=== PATIENT | male | born 1980 | race Caucasian/White ===

== ENCOUNTER 2022-02-21 04:10 | Outpatient (CLI) | payer MEDICARE, MEDICAID, SELFPAY ==
[2022-02-21] MEDS: Albuterol HFA 18 GM 200 PUFF INH IH (11:19)
[2022-02-21] MEDS: Inhaler, Assist Device 1 EACH MC (11:19)
--- NOTE | 2022-02-21 11:58 | W.PFT ---
Date of service: 02/21/22 Time of Service: 10:11 Pulmonary Function Test Result Requesting Provider Grupo Indications: ACOS Note: 6 Minute Walk Test Distance walked:1600 feet Desaturations: 4 LPM needed after 30 seconds, 8LPM needed at 3 minutes to maintain saturations in the high 80's. Heart rate changes:82bpm that increased to 114bpm at 5 minutes Recommendation: Flakita Lombardo MD Pulmonary & Critical Care Medicine Clinical Correlation therefore is recommended.
--- NOTE | 2022-02-21 15:23 | W.PFT ---
Date of service: 02/21/22 Time of Service: 10:25 Pulmonary Function Test Result Requesting Provider Duchene Indications: ACOS Interpretation Spirometry: There is no airflow limitation. There is no significant bronchodilator response. Lung Volumes: Normal lung volumes. Diffusion Capacity: Reduced diffusion. Airway Pressure: Normal airways resistance. Impression Reduced diffusion. This could represent early ILD or pulmonary vascular disease. Clinical Correlation therefore is recommended.
== END 2022-02-21 04:11 | disposition home or self-care (01) ==
LOC: RT 04:10
PROVIDERS: PCP Family Medicine; Visit Provider Student in an Organized Health Care Education/Training Program
DX: J44.9 Chronic obstructive pulmonary disease, unspecified (principal); J98.4 Other disorders of lung; Z87.891 Personal history of nicotine dependence
CPT/HCPCS: 94060; 94618; 94726; 94729

== ENCOUNTER 2022-08-28 15:53 | Outpatient (REF) | payer MEDICARE, MEDICAID, SELFPAY ==
[2022-08-28 11:39] LABS: Abs Immature Grans 0.03 10^3/uL (0.0-0.06); Absolute Basophil Count 0.08 10^3/uL (0.0-0.2); Absolute Eosinophil Count 0.18 10^3/uL (0.0-0.7); Absolute Lymphocyte Count 2.89 10^3/uL (1.2-3.4); Absolute Monocyte Count 0.92 10^3/uL (0.1-0.8); Absolute Neutrophil Count 5.35 10^3/uL (1.2-6.7); Basophils % 0.8; Eosinophils % 1.9; HCT 38.9 % (40.0-50.0); HGB 12.8 g/dL (13.5-17.5); Immature Grans % 0.3; Lymphocytes % 30.6; MCH 29.9 pg (27.0-33.0); MCHC 32.9 % (32.0-36.0); MCV 91 fL (80-95); MPV 9.2 fL (8.0-11.0); Monocytes % 9.7; Neutrophils % 56.7; Platelet Count 409 10^3/uL (130-400); RBC 4.28 10^6/uL (4.36-5.78); RDW 12.2 % (11.8-14.1); RDW-SD 40.3 fL; WBC 9.45 10^3/uL (4.4-10.8)
[2022-08-28 12:39] LABS: TSH (W/Ref FT4) 6.22 uIU/mL (0.36-3.74)
[2022-08-28 12:54] LABS: FREE T4 0.65 ng/dL (0.76-1.46)
== END 2022-08-28 15:54 | disposition home or self-care (01) ==
LOC: LBN 15:53
PROVIDERS: PCP Family Medicine; Visit Provider Student in an Organized Health Care Education/Training Program
DX: J96.91 Respiratory failure, unspecified with hypoxia (principal); F17.210 Nicotine dependence, cigarettes, uncomplicated; J44.9 Chronic obstructive pulmonary disease, unspecified
CPT/HCPCS: 84439; 84443; 85025

== ENCOUNTER 2022-09-28 03:26 | Outpatient (CLI) | payer MEDICARE, MEDICAID, SELFPAY ==
[2022-09-28 12:03] LABS: BE -1 mmol/L (-2-3); HCO3 24 mmol/L (22-26); pCO2 38 mmHg (35-45); pO2 191 mmHg (80-105)
[2022-09-28 12:04] LABS: FIO2L 8 L; Site Right Radial; sO2 > 99 % (95-98)
== END 2022-09-28 03:27 | disposition home or self-care (01) ==
LOC: RT 03:26
PROVIDERS: PCP Family Medicine; Visit Provider Student in an Organized Health Care Education/Training Program
DX: J96.91 Respiratory failure, unspecified with hypoxia (principal)
CPT/HCPCS: 82805; 36600

== ENCOUNTER 2022-11-24 03:49 | Outpatient (CLI) | payer MEDICARE, MEDICAID, SELFPAY ==
--- NOTE | 2022-11-24 15:35 | W.6MWT ---
Date of service: 11/24/22 Time of Service: 12:51 6 Minute Walk Test Note: 6 Minute Walk Test Distance walked:1300 feet Desaturations: none - left on 8LPM throughout the walk despite SpO2 >97% throughout. Heart rate changes: No significant changes Recommendation: unable to make recommendation due to inappropriate test done. Recommend repeat with a proper titration performed. Flakita Lombardo MD Pulmonary & Critical Care Medicine
== END 2022-11-24 03:50 | disposition home or self-care (01) ==
LOC: RT 03:50
PROVIDERS: PCP Family Medicine; Visit Provider Student in an Organized Health Care Education/Training Program
DX: J96.01 Acute respiratory failure with hypoxia (principal)
CPT/HCPCS: 94618

== ENCOUNTER → 2023-02-08 12:30 | Outpatient (BNVA) | payer MEDICARE, MEDICAID, SELFPAY | PROVIDERS: PCP Family Medicine; Referring Provider Family Medicine; Visit Provider Physician Assistant Surgical | DX: Z79.899 Other long term (current) drug therapy (principal); J44.9 Chronic obstructive pulmonary disease, unspecified; J96.91 Respiratory failure, unspecified with hypoxia | CPT/HCPCS: 99443 ==

== ENCOUNTER 2023-03-05 05:32 | Outpatient (CLI) | payer MEDICARE, MEDICAID, SELFPAY ==
--- NOTE | 2023-03-05 12:28 | W.6MWT ---
Date of service: 03/05/23 Time of Service: 12:26 6 Minute Walk Test Note: 6 Minute Walk Test Distance walked:1600 feet Desaturations: No significant desaturations Heart rate changes: 125bpm to 149 bpm Recommendation: No supplemental O2 required to maintain saturations. Flakita Lombardo MD Pulmonary & Critical Care Medicine
== END 2023-03-05 05:33 | disposition home or self-care (01) ==
LOC: RT 05:39
PROVIDERS: PCP Family Medicine; Visit Provider Physician Assistant Surgical
DX: J44.9 Chronic obstructive pulmonary disease, unspecified (principal); J96.91 Respiratory failure, unspecified with hypoxia
CPT/HCPCS: 94618

== ENCOUNTER → 2023-06-11 10:19 | Outpatient (BNVA) | payer MEDICARE, MEDICAID, SELFPAY | PROVIDERS: PCP Family Medicine; Referring Provider Family Medicine; Visit Provider Student in an Organized Health Care Education/Training Program | DX: J44.9 Chronic obstructive pulmonary disease, unspecified (principal); J96.91 Respiratory failure, unspecified with hypoxia; Z87.891 Personal history of nicotine dependence | CPT/HCPCS: 99214 ==

== ENCOUNTER → 2023-12-18 09:48 | Outpatient (BNVA) | payer MEDICARE, MEDICAID, SELFPAY | PROVIDERS: PCP Family Medicine; Referring Provider Family Medicine; Visit Provider Physician Assistant Surgical | DX: J44.9 Chronic obstructive pulmonary disease, unspecified (principal); J96.91 Respiratory failure, unspecified with hypoxia; Z87.891 Personal history of nicotine dependence | CPT/HCPCS: 99214 ==

== ENCOUNTER 2024-01-03 03:20 | Outpatient (CLI) | payer MEDICARE, MEDICAID, SELFPAY ==
[2024-01-03] MEDS: Methacholine 100 MG VIAL IH (11:24)
[2024-01-03] MEDS: Inhaler, Assist Device 1 EACH MC (11:24)
[2024-01-03] MEDS: Albuterol HFA 18 GM 200 PUFF INH IH (11:25)
--- NOTE | 2024-01-03 20:50 | W.PFT ---
Date of service: 01/03/24 Time of Service: 09:59 Pulmonary Function Test Result Indications: ACOS Interpretation Spirometry: There is no airflow limitation at baseline. There was a 27% decrease in FEV1 with administration of 0.5mg/mL methacholine. Lung Volumes: Normal lung volumes Diffusion Capacity: Normal diffusion Airway Pressure: Normal airways resistance Impression Normal baseline pulmonary function with a positive methacholine challenge. Clinical Correlation therefore is recommended.
== END 2024-01-03 03:21 | disposition home or self-care (01) ==
LOC: RT 03:21
PROVIDERS: PCP Family Medicine; Visit Provider Physician Assistant Surgical
DX: J44.89 Other specified chronic obstructive pulmonary disease (principal)
CPT/HCPCS: 94060; 94070; 94726; 94729; 94010; 94762; J7674

== ENCOUNTER → 2024-01-31 09:29 | Outpatient (BNVA) | payer MEDICARE, MEDICAID, SELFPAY | PROVIDERS: PCP Family Medicine; Referring Provider Family Medicine; Visit Provider Physician Assistant Surgical | DX: J44.9 Chronic obstructive pulmonary disease, unspecified (principal); J96.91 Respiratory failure, unspecified with hypoxia; Z87.891 Personal history of nicotine dependence | CPT/HCPCS: 99214 ==